=== PATIENT | female | born 1990 | race Two or more races ===

== ENCOUNTER → 2019-10-26 | Outpatient (CLI) | payer OTHER | END | disposition home or self-care (01) | LOC: PRENATAL 10-20 10:00 | DX: O35.3XX0 Maternal care for (suspected) damage to fetus from viral disease in mother, not applicable or unspecified (principal); O34.12 Maternal care for benign tumor of corpus uteri, second trimester; Z36.89 Encounter for other specified antenatal screening ==

== ENCOUNTER 2019-11-15 12:02 | Outpatient (CLI) | payer OTHER | END 2019-11-15 19:23 | disposition home or self-care (01) | LOC: OBS/DEL 12:02 | PROVIDERS: ATTEND Obstetrics & Gynecology | DX: O26.842 Uterine size-date discrepancy, second trimester (principal); O60.02 Preterm labor without delivery, second trimester; O26.892 Other specified pregnancy related conditions, second trimester; O34.12 Maternal care for benign tumor of corpus uteri, second trimester; O23.42 Unspecified infection of urinary tract in pregnancy, second trimester ==

== ENCOUNTER 2019-11-28 02:22 | Outpatient (CLI) | payer OTHER ==
[2019-11-28] MEDS ORDERED: PRENATAL TABLE1 EAC1 PO (04:58)
== END 2019-11-28 16:06 | disposition home or self-care (01) ==
LOC: OBS/DEL 02:22
PROVIDERS: ATTEND Obstetrics & Gynecology
DX: O26.842 Uterine size-date discrepancy, second trimester (principal); O60.02 Preterm labor without delivery, second trimester; O26.899 Other specified pregnancy related conditions, unspecified trimester; O26.872 Cervical shortening, second trimester; O34.12 Maternal care for benign tumor of corpus uteri, second trimester; D25.9 Leiomyoma of uterus, unspecified

== ENCOUNTER 2020-01-14 14:22 | Outpatient (CLI) | payer OTHER ==
[~2020-01-14 14:22] MED LIST: PRENATAL TABLE1 EAC1 PO
[2020-01-14] MEDS ORDERED: SINGULAIR10 MG PO (14:56)
[2020-01-14] MEDS ORDERED: IRON325 MG PO (14:56)
== END 2020-01-15 13:58 | disposition home or self-care (01) ==
LOC: OBS/DEL 14:22
PROVIDERS: ATTEND Obstetrics & Gynecology
DX: O23.33 Infections of other parts of urinary tract in pregnancy, third trimester (principal); O99.013 Anemia complicating pregnancy, third trimester; D64.89 Other specified anemias; R25.2 Cramp and spasm

== ENCOUNTER 2020-02-07 15:04 | Outpatient (CLI) | payer OTHER ==
[~2020-02-07 15:04] MED LIST changes: +IRON325 MG PO; +SINGULAIR10 MG PO
== END 2020-02-08 11:23 | disposition home or self-care (01) ==
LOC: OBS/DEL 15:04
PROVIDERS: ATTEND Obstetrics & Gynecology
DX: O26.893 Other specified pregnancy related conditions, third trimester (principal); R10.2 Pelvic and perineal pain

== ENCOUNTER 2020-02-26 04:20 | Inpatient (IN) | payer OTHER ==
[~2020-02-26] VITALS: Ht 167.6 cm; Wt 98.9 kg
[2020-02-26] MEDS ORDERED: PRENATAL TABLE1 EAC3 PO (05:38)
[2020-02-26] MEDS ORDERED: SINGULAIR 10MG10 MG PO (05:38)
[2020-02-26] MEDS ORDERED: IRON325 MG PO (05:38)
== END 2020-02-28 15:58 | disposition home or self-care (01) | DRG 807 ==
LOC: LDR 04:20 → OB/GYN 04:20
PROVIDERS: ADMIT Obstetrics & Gynecology; ATTEND Obstetrics & Gynecology
PROC: 10E0XZZ Delivery of Products of Conception, External Approach (ICD-10-PCS; principal; 2020-02-26)
PROC: 0HQ9XZZ Repair Perineum Skin, External Approach (ICD-10-PCS; 2020-02-26)
PROC: 4A1HXCZ Monitoring of Products of Conception, Cardiac Rate, External Approach (ICD-10-PCS; 2020-02-26)
DX: O70.0 First degree perineal laceration during delivery (principal); Z37.0 Single live birth; Z3A.38 38 weeks gestation of pregnancy; Z20.828 Contact with and (suspected) exposure to other viral communicable diseases